=== PATIENT | female | born 1960 | race Caucasian/White ===

== ENCOUNTER 2022-07-30 01:52 | Day surgery (SDC) | payer MEDICARE, OTHER, SELFPAY ==
[2022-07-23 13:52] VITALS: BMI 31.6
--- NOTE | 2022-07-29 11:34 | PM.HPGS ---
History of Present Illness History of Present Illness Consent: Risks, benefits, and alternatives have been discussed and questions answered. Patient agrees to proceed with procedure. Chief complaint: neoplasm screening Narrative: Esha Cortez is a 62 year old female Referred for colon cancer screening. Review of Systems Review of Systems: All systems reviewed & are unremarkable except as noted in HPI and below PMFSH Social History Social History Smoking packs per day: 1 Smoking cigarettes per day: 20.0 Years smoked: 20 Smoking pack-years: 20.00 Smoking status: Never smoker Tobacco type: cigarettes Alcohol intake: current Substance use: never Substance use type: does not use Living arrangements: with family Spiritual care concerns: No Meds Home Medications and Allergies Home Medications Medication Instructions Recorded Confirmed Type baclofen 20 mg tablet 20 mg PO BID 07/23/22 07/30/22 History baclofen 20 mg tablet 40 mg PO HS 07/23/22 07/30/22 History calcium carbonate 600 mg calcium 600 mg PO DAILY 07/23/22 07/30/22 History (1,500 mg) tablet cholecalciferol (vitamin D3) 125 125 mcg PO DAILY 07/23/22 07/30/22 History mcg (5,000 unit) tablet (Vitamin D3) escitalopram oxalate 20 mg tablet 20 mg PO HS 07/23/22 07/30/22 History gabapentin 300 mg capsule 900 mg PO HS 07/23/22 07/30/22 History gabapentin 300 mg tablet 300 mg PO DAILY 07/23/22 07/30/22 History metformin 500 mg tablet,extended 500 mg PO BID 07/23/22 07/30/22 History release 24 hr multivitamin 1 tablet PO DAILY 07/23/22 07/30/22 History omega-3 fatty acids-vitamin E 1,000 cap PO DAILY 07/23/22 07/30/22 History 1,000 mg capsule oxybutynin chloride 5 mg tablet 5 mg PO BID 07/23/22 07/30/22 History rivaroxaban 10 mg tablet (Xarelto) 10 mg PO DAILY 07/23/22 07/30/22 History tizanidine 4 mg capsule 2 mg PO HS 07/23/22 07/30/22 History topiramate 50 mg tablet 50 mg PO BID 07/23/22 07/30/22 History zolpidem 6.25 mg tablet,extended 6.25 mg PO HS PRN Insomnia 07/23/22 07/30/22 History release,multiphase Allergies Allergy/AdvReac Type Severity Reaction Status Date / Time avocado Allergy Intermediate Other Verified 07/30/22 09:45 Exam Const: General: alert Orientation/consciousness: patient oriented x3 Resp: Auscultation: clear to auscultation bilaterally Cardio: Rhythm: regular rhythm GI: GI Palp: Yes Soft to palpation and No Tenderness to palpation present (GI) Neuro: General: patient oriented x3 Assessment and Plan Assessment and plan (1) Colon cancer screening: Code(s): Z12.11 - Encounter for screening for malignant neoplasm of colon Status: Acute Assessment and Plan: Colonoscopy with possible biopsy or polypectomy or cautery or injection of substances.
[2022-07-30 09:40] VITALS: BP 131/64; PULSE 71; RESP 18; TEMP 36.2; O2SAT 97; BMI 33.6
[2022-07-30] MEDS: LACTATED RINGERS 1,000 ML 150 ML IV CONT (09:58)
[2022-07-30 09:59] LABS: Glucose Point of Care 188 mg/dl (65-105)
--- NOTE | 2022-07-30 10:15 | WPDANESEPPF ---
Anes - Initial Pre Proc Eval Procedure: Operation Date: 07/30/22 10:30 Proposed Procedures p Screening Colonoscopy - Jalen Pope MD Date/Time: 07/30/22 10:15 Surgeon: Jalen Pope MD Pre Op Diagnosis: neoplasm screening Patient Data Age: 62 Gender: F Height: 1.78 m Weight: 106.4 kg Last Vital Signs Temp 97.1 F L 07/30/22 09:40 Pulse 71 07/30/22 09:40 Resp 18 07/30/22 09:40 BP 131/64 07/30/22 09:40 Pulse Ox 97 07/30/22 09:40 O2 Del Method Room Air 07/30/22 09:40 Allergies Allergy/AdvReac Type Severity Reaction Status Date / Time avocado Allergy Intermediate Other Verified 07/30/22 09:45 Home Medications Medication Instructions Recorded Confirmed Type baclofen 20 mg tablet 20 mg PO BID 07/23/22 07/30/22 History baclofen 20 mg tablet 40 mg PO HS 07/23/22 07/30/22 History calcium carbonate 600 mg calcium 600 mg PO DAILY 07/23/22 07/30/22 History (1,500 mg) tablet cholecalciferol (vitamin D3) 125 125 mcg PO DAILY 07/23/22 07/30/22 History mcg (5,000 unit) tablet (Vitamin D3) escitalopram oxalate 20 mg tablet 20 mg PO HS 07/23/22 07/30/22 History gabapentin 300 mg capsule 900 mg PO HS 07/23/22 07/30/22 History gabapentin 300 mg tablet 300 mg PO DAILY 07/23/22 07/30/22 History metformin 500 mg tablet,extended 500 mg PO BID 07/23/22 07/30/22 History release 24 hr multivitamin 1 tablet PO DAILY 07/23/22 07/30/22 History omega-3 fatty acids-vitamin E 1,000 cap PO DAILY 07/23/22 07/30/22 History 1,000 mg capsule oxybutynin chloride 5 mg tablet 5 mg PO BID 07/23/22 07/30/22 History rivaroxaban 10 mg tablet (Xarelto) 10 mg PO DAILY 07/23/22 07/30/22 History tizanidine 4 mg capsule 2 mg PO HS 07/23/22 07/30/22 History topiramate 50 mg tablet 50 mg PO BID 07/23/22 07/30/22 History zolpidem 6.25 mg tablet,extended 6.25 mg PO HS PRN Insomnia 07/23/22 07/30/22 History release,multiphase Laboratory Tests 07/30/22 09:52 POC Capillary Glucose 188 mg/dl H mg/dl (65-105) Patient hx anesthesia problems: none Family hx anesthesia problems: none Results Review: All pre-operative results and documents have been reviewed as part of the pre-operative evaluation. [facility] Social History Social History (System 09/19/19 @ 09:17 by Ginger Youngblood) Smoking packs per day: 1 Smoking cigarettes per day: 20.0 Years smoked: 20 Smoking pack-years: 20.00 Smoking status: Never smoker Tobacco type: cigarettes Alcohol intake: current Substance use: never Substance use type: does not use Living arrangements: with family Spiritual care concerns: No Anes - Eval Final PreProcedure Day of Procedure 07/30/22 10:15 Patient weight: normal Heart: regular rate and rhythm Lungs: clear to auscultation Airway: Mallampati scale class II Neurological: alert and oriented Last oral intake: >/= 8 hours ASA classification: III Emergent: no Anesthetic plan: proceed Anesthesia type and monitoring: general GIVS and standard monitoring Results Review: All pre-operative results and documents have been reviewed as part of the pre-operative evaluation. Informed Consent: The patient's anesthetic plan and its attendant risks and benefits were discussed with the patient/family/POA. Questions were solicited and answers provided to the satisfaction of the patient/family/POA.
[2022-07-30 10:53] VITALS: BP 105/52; PULSE 75; RESP 20; O2SAT 98
[2022-07-30 11:03] VITALS: BP 114/59; PULSE 62; RESP 18; O2SAT 99
[2022-07-30 11:13] VITALS: BP 122/64; PULSE 63; RESP 21; O2SAT 98
== END 2022-07-30 11:19 | disposition home or self-care (01) ==
PROVIDERS: PCP Family Medicine; Visit Provider Internal Medicine Gastroenterology
PROC: 0DJD8ZZ Inspection of Lower Intestinal Tract, Via Natural or Artificial Opening Endoscopic (ICD-10-PCS; CPT 45378; principal; 2022-07-30 10:30)
DX: Z12.11 Encounter for screening for malignant neoplasm of colon (principal); K63.5 Polyp of colon; Z79.84 Long term (current) use of oral hypoglycemic drugs; Z79.01 Long term (current) use of anticoagulants
CPT/HCPCS: 45385; 82948; 88305; J2704; J7120

== ENCOUNTER 2023-01-14 14:28 | Outpatient (CLI) | payer MEDICARE, OTHER, SELFPAY ==
--- NOTE | ~2023-01-14 | DEXA_ITS ---
Bone Density Report Name: KAMI AC Age: 62 Sex: Female Ethnicity: White Date of : 1960 Indication: postmenopausal; screening for osteoporosis; height loss; Referring Provider: GARLAND, ISAIAH Oliver Study: Bone densitometry was performed. Exam Date: January 14, 2023 Accession number: [id number] Bone Density: Region BMD T-score Z-score Classification AP Spine(L1-L4) 1.132 0.8 2.2 Normal Femoral Neck (Left) 0.684 -1.5 -0.2 Osteopenia Total Hip (Left) 0.821 -1.0 0.0 Normal Femoral Neck (Right) 0.685 -1.5 -0.2 Osteopenia Total Hip (Right) 0.823 -1.0 0.0 Normal Total Hip Mean 0.822 -1.0 0.0 Normal World Health Organization criteria for BMD impression classify patients as: Normal (T-score at or above -1.0), Osteopenia (T-score between -1.0 and -2.5), or Osteoporosis (T-score at or below -2.5). 10-year Fracture Risk(1): Major Osteoporotic Fracture 7.6% Hip Fracture 0.6% Reported Risk Factors: [place] (), Neck BMD=0.684, BMI=32.8 (1) FRAX(R) Version 3.08. Fracture probability calculated for an untreated patient. Fracture probability may be lower if the patient has received treatment. Clinical Information Provided by Patient: Has used the following medications: Vitamin D, Calcium Patient maximum height was 70 Menopause Age: 52 Drinks caffeinated beverages Onset of menses at age 15 Number of children 2 Impression: The patient has low bone mass, based on the Left Femoral Neck T-score. The patient has an estimated ten-year risk of hip fracture of 0.6% and an estimated ten-year risk of major fracture of 7.6%, based on the WHO FRAX algorithm. Discussion: BONE DENSITY IS LOW AT ONE OR MORE SKELETAL SITES. This patient's lowest T-score is low at one or more skeletal sites. It meets the World Health Organization's (WHO) criteria for ?low bone mass? (T-score between -1.0 and -2.5). The patient's 10-year risk of fracture as calculated by FRAX is less than the threshold where pharmacological therapy is recommended by the National Osteoporosis Foundation (NOF). However, all treatment decisions require clinical judgment and consideration of individual patient factors, including patient preferences, comorbidities, previous drug use, risk factors not captured in the FRAX model (e.g., frailty, falls, vitamin D deficiency, increased bone turnover, interval significant decline in bone density) and possible under or overestimation of fracture risk by FRAX. The patient should follow a healthful lifestyle (good nutrition with adequate calcium and vitamin D, and appropriate weight-bearing exercise). Follow-Up: Consider repeating this study in 2 to 3 years to reassess this patient's status, or sooner if there is some new clinical indication. Reported by: VINAY on 01/14/2023 3:15:00 PM.
--- NOTE | ~2023-01-14 | XR_ITS ---
EXAMINATION: XR shoulder LT min 2V, XR humerus LT DATE: 01/14/2023 15:28 INDICATION: Left arm pain TECHNIQUE: 1. AP internally and externally rotated, AP oblique externally rotated and transscapular Y views of t he left shoulder were obtained. 2. Internal and external rotated views of the left humerus were obtained. COMPARISON: None FINDINGS: Normal alignment. No fracture.Mild polyarticular osteoarthritis at the left glenohumeral, acromiocla vicular and elbow joints. Moderate-sized subacromial spur. Additional tiny enthesophytes at the media l and lateral epicondyles of the distal humerus. Visualized portion of the left lung is clear. Soft t issues are unremarkable. 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 Reviewed, dictated and finalized at location A. 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
--- NOTE | ~2023-01-14 | MM_ITS ---
EXAMINATION: MM screening joelle BI w brenda HISTORY: Screening mammogram TECHNIQUE: Craniocaudal and mediolateral oblique 3-D tomosynthesis images were obtained and synthetic 2-D images were generated. CAD analysis was submitted and interpreted. COMPARISON: 06/13/2019, 04/13/2018, 02/08/2017 bilateral screening mammogram examinations BREAST PARENCHYMAL COMPOSITION: There are scattered areas of fibroglandular density. FINDINGS: There is no evidence of suspicious mass, calcification, or architectural distortion to sugg est malignancy in either breast. There has been no suspicious interval change. IMPRESSION: 1. No mammographic evidence of malignancy. 2. Recommend routine screening mammography in one year. BI-RADS Category 1: Negative Reviewed, dictated and finalized at location A.
== END 2023-01-14 14:29 | disposition home or self-care (01) ==
PROVIDERS: PCP Family Medicine; Visit Provider Physician Assistant
DX: Z12.31 Encounter for screening mammogram for malignant neoplasm of breast (principal); Z78.0 Asymptomatic menopausal state; M19.012 Primary osteoarthritis, left shoulder; M19.022 Primary osteoarthritis, left elbow; M85.852 Other specified disorders of bone density and structure, left thigh; M85.851 Other specified disorders of bone density and structure, right thigh
CPT/HCPCS: 73030; 73060; 77063; 77067; 77080

== ENCOUNTER 2023-01-19 09:58 | Outpatient (RCR) | payer MEDICARE, OTHER, SELFPAY ==
[2023-01-19 10:00] VITALS: BP_SYST 85
--- NOTE | 2023-01-19 10:56 | OPREHPOC ---
Outpatient Therapy Plan of Care This is a Multidisciplinary Plan of Care that may contain components documented by all disciplines (PT, OT, and ST.) PT Problem 1 PT Problem #1 Knowledge Deficit PT Goal 1 Goal 1* indep with HEP 2* maintain good shoulder position with exercises PT Problem 2 PT Problem #2 Pain PT Goal 1 Goal 1* pt report pain of 5/10 at worst 2* pt report times of NO pain PT Problem 3 PT Problem #3 Impaired Range of Motion PT Goal 1 Goal standing L shoulder active ROM: 1* flexion 140' 2* abduction 120' 3* IR- reach behind back, palm to above waist PT Problem 4 PT Problem #4 Impaired Strength PT Goal 1 Goal 1* pt report using her L arm for home tasks/ cooking ~ 10 minutes pt perform in standing, 5 reps L shoulder: 2* flexion to 90' with 2# hand wt 3* abduction to 80' with 2# hand wt
--- NOTE | 2023-01-19 10:57 | PTOPEVAL1 ---
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 She reports multiple falls where she catches herself with the L arm. Xray report states mild OA of L shoulder--GH A-C joints and elbow and moderate subacromioal spur. She is active and performs all home and self care tasks with increase shoulder pain. With the evaluation, she has decreased ROM and strength of L shoulder with abduction motion the most painful; rounded shoulder posture/poor GH positioning of joint. Skilled PT services are indicated for modalities to decrease pain and spasms; therapeutic exercises to increase shoulder ROM and strength with education for home exercises, posture correction and pain management. Plan of Care Interventions Electrical Stimulation,Hot Pack/Cold Pack,Manual Therapy,Neuro Re-education,Patient Education,The
--- NOTE | 2023-01-22 12:36 | PCPTNOTE ---
Patient called & cancelled scheduled appointment this date but didn't provide a reason.
--- NOTE | 2023-02-02 10:58 | PCPTNOTE ---
Pt. did not show for 02/02/23 appointment.
--- NOTE | 2023-02-05 16:11 | PCPTNOTE ---
pt called and canceled appt for 8-3 and 8-[address] appt;
--- NOTE | 2023-03-09 11:05 | PCPTNOTE ---
PHYSICAL THERAPY DISCHARGE 03-09-23 Attending Provider: Jackson Velasquez NP Patient:Esha Cortez Date of :1960 Mrs. Cortez received the PT evaluation on 01-19-23, then called and canceled appointments due to going to see an ortho dr. She has not returned for any further treatment, therefore, she will be discharged at this time.
== END 2023-03-10 08:19 | disposition home or self-care (01) ==
LOC: ANHPT 09:58
PROVIDERS: PCP Family Medicine; Visit Provider Nurse Practitioner Family
DX: M79.602 Pain in left arm (principal)
CPT/HCPCS: 97110; 97161; 99199